=== PATIENT | female | born 1990 | race Caucasian/White ===

== ENCOUNTER 2016-07-30 00:25 | Emergency (ER) | payer OTHER ==
[~2016-07-30] VITALS: Ht 154.9 cm; Wt 77.1 kg
[~2016-07-30 00:25] MED LIST: DOCUSATE SODIU100 MG PO; IBUPROFEN800 MG PO; MILK OF MAGNESI30 ML PO; PERCOCET 325 MG1 TA2 PO; PERCOCET MONOGRA5 MG PO; PROAIR HFA0.09 MG/Ac INH
[2016-07-30 00:39] VITALS: BP 129/90
[2016-07-30 01:13] LABS: ABSOLUTE BASOPHIL COUNT 0 /CUMM (0.0-0.2); ABSOLUTE EOSINOPHIL COUNT 0.1 /CUMM (0.0-0.7); ABSOLUTE GRANULOCYTE CT 5.3 /CUMM (1.4-6.5); ABSOLUTE LYMPH COUNT 2.3 /CUMM (1.2-3.4); ABSOLUTE MONOCYTE COUNT 0.9 /CUMM (0.10-0.60); BASOPHIL % 0.4 % (0.0-2.0); EOSINOPHIL % 1.2 % (0-5); HEMATOCRIT 38.7 % (37-47); MEAN CORPUSCULAR HGB 28.7 PG (27.0-31.0); MEAN CORPUSCULAR HGB CONC 33.6 G/DL (33.0-37.0); MEAN CORPUSCULAR VOLUME 85.4 FL (81.0-99.0); MEAN PLATELET VOLUME 8.4 FL (7.4-10.4); PLATELET COUNT 275 /CUMM (130-400); RBC DISTRIBUTION WIDTH 13.5 % (11.5-14.5); RED BLOOD CELL CT 4.53 /CUMM (4.20-5.40); WHITE BLOOD CELL COUNT 8.6 /CUMM (4.8-10.8)
--- NOTE | 2016-07-30 02:49 | ED GI/GU/ABDOMINAL COMPLAINT ---
History of Present Illness General Chief Complaint: Female Urogenital Problems Stated Complaint: " 7WKS , NOT SURE IF HAVING A MISCARRIAGE" Source: patient Exam Limitations: no limitations Vital Signs & Intake/Output Vital Signs & Intake/Output Vital Signs Date Time Temp Pulse Resp B/P B/P Pulse O2 O2 Flow FiO2 Mean Ox Delivery Rate 07/30 0039 97.6 86 18 129/90 96 Room Air Allergies Coded Allergies: MDX - Penicillin (PENICILLIN) (Intermediate, HIVES 05/25/14) Reconcile Medications Albuterol Sulfate (Proair Hfa) 0.09 MG/Actuation ARCELIA 2 PUF INH PRN PRN SHORTNESS OF BREATH (Reported) Docusate Sodium 100 MG SGL 100 MG PO BID constpation Ibuprofen 800 MG TABLET 1 TAB PO Q6P PRN PAIN SCALE 1-4 Magnesium Hydroxide (Milk Of Magnesia 30ML) 400 MG/5 ML ORAL.SUSP 30 ML PO ONE constipation OXYCODONE HCL/ACETAMINOPHEN (Percocet 5-325 MG Tablet) 325 MG/5 MG TAB 1-2 TAB PO Q4-6 PRN PRN PAIN Oxycodone/Acetaminophen (Percocet 5-325 MG Tablet) 5 MG-325 MG TABLET 1 TAB PO Q4P PRN PAIN SCALE 4-7 Triage Note: PT FROM HOME C/O VAGINAL BLEEDING. PT STATES SHE IS 7 WEEKS AND TONIGHT AT WORK NOTICED DARK DISCHARGE WHICH OBGYN STATED WAS NORMAL, BUT TONIGHT HAD BRIGHT RED BLOOD IN DISCHARGE AND PT WAS WORRIED SO CAME TO ED. PT DENIES N/V OR ABD PAIN "I JUST FEEL HUNGRY". PT IN NO DISTRESS IN TRIAGE. AWAITING TBS BY PROVIDER. Triage Nurses Notes Reviewed? yes ? Y Is pt currently ? No HPI: Patient presents for evaluation of dark vaginal bleeding that occurred after using the bathroom this evening. Patient is 7 weeks and the IUP confirmed by an ultrasound at her [employer] [employer]NA[facility] doctor's office. Patient states however that when the blood became red she felt "it was coming from somewhere" and came to the emergency department for evaluation. Patient states she's had a mild to moderate amount of bleeding. Nothing seems to make the bleeding improve. She states that she is having some very mild back cramps but otherwise no associated pain or discomfort. Past History Travel History Traveled to [place] past 21 day No Medical History Any Pertinent Medical History? see below for history Neurological: NONE EENT: NONE Cardiovascular: NONE Respiratory: NONE Gastrointestinal: NONE Hepatic: NONE Renal: NONE Musculoskeletal: NONE Psychiatric: NONE Endocrine: NONE Blood Disorders: NONE Cancer(s): NONE FUNDING COORDINATOR/Reproductive: R/L OVARIAN CYST History of MRSA: No History of VRE: No History of CDIFF: No Tetanus Vaccine: 04/17/12 Surgical History Surgical History: non-contributory Psychosocial History Who do you live with Family What is your primary language [place] Tobacco Use: Never used Family History Hx Contributory? No Review of Systems Review of Systems Constitutional: Reports: no symptoms. EENTM: Reports: no symptoms. Respiratory: Reports: no symptoms. Cardiovascular: Reports: no symptoms. GI: Reports: no symptoms. Genitourinary: Reports: see HPI. Musculoskeletal: Reports: no symptoms. Skin: Reports: no symptoms. Neurological/Psychological: Reports: no symptoms. Hematologic/Endocrine: Reports: no symptoms. Immunologic/Allergic: Reports: no symptoms. All Other Systems: Reviewed and Negative Physical Exam Physical Exam Gastrointestinal: SEE BELOW Comments: Gen.: Well-nourished, well-developed, no acute respiratory distress. Head: Normocephalic, atraumatic. Eyes: Normal inspection bilaterally Ears: Normal inspection bilaterally Nose: Normal inspection Throat/mouth : Moist mucosa Neck: Supple, full range of motion, no goiter Lungs: Quiet respirations Back: Normal range of motion Abdomen: Soft, nontender, nondistended, normal bowel sounds Extremities: Normal range of motion grossly, equal radial pulses, no cyanosis clubbing or edema Neurologic: Cranial nerves grossly intact, speech is clear Skin: warm and dry Psychiatric: Calm, cooperative, no apparent delusions or hallucinations : Cervical os is closed and there is no blood in the vaginal vault on speculum exam. Core Measures ACS in differential dx? No Severe Sepsis Present: No Septic Shock Present: No Progress Differential Diagnosis: VAGINAL BLEEDING DURING Plan of Care: Orders Procedure Date/time Status TYPE & SCREEN (NOT X-MATCH) 07/31 55 Complete URINALYSIS 07/30 54 Complete HUMAN BETA HCG TITRE 07/30 54 Complete CBC WITHOUT DIFFERENTIAL 07/30 54 Complete Laboratory Tests 07/30/16 0106: Beta HCG, Quant 1457.2, CBC w Diff NO MAN DIFF REQ, RBC 4.53, MCV 85.4, MCH 28.7 , RDW 13.5, MPV 8.4, Gran % 62.0, Lymphocytes % 26.4, Monocytes % 10.0 H, Eosinophils % 1.2, Basophils % 0.4, Absolute Granulocytes 5.3, Absolute Lymphocytes 2.3, Absolute Monocytes 0.9 H, Absolute Eosinophils 0.1, Absolute Basophils 0, PUBS MCHC 33.6 07/30/16 0058: Urine Color STRAW, Urine Clarity HAZY H, Urine pH 6.5, Ur Specific [place] <= 1.005, Urine Protein NEG, Urine Ketones NEG, Urine Nitrite NEG, Urine Bilirubin NEG, Urine Urobilinogen 0.2, Ur Leukocyte Esterase SMALL H, Ur Microscopic SEDIMENT EXAMINED, Urine RBC RARE, Urine WBC 1-3 H, Ur Epithelial Cells MANY H , Urine Bacteria FEW H, Urine Mucus RARE, Urine Hemoglobin SMALL H, Urine Glucose NEG Initial ED EKG: none Comments: The cervical os is closed so I doubt miscarriage at this time. Maritza states that she has had an ultrasound to confirm an intrauterine so I doubt ectopic. I feel she is stable for follow-up with her [employer] doctor. Departure Departure Disposition: HOME OR SELF CARE Condition: Stable Clinical Impression Primary Impression: Vaginal bleeding during , antepartum Qualifiers: Trimester: first trimester Qualified Code: O46.91 - Antepartum hemorrhage, unspecified, first trimester Referrals: PATIENT HAS NO PRIMARY CARE DR (PCP/Family) Additional Instructions: Follow-up with your [employer] doctor tomorrow. Return if any concerns or sudden worsening. Departure Forms: Customer Survey General Discharge Information
== END 2016-07-30 04:00 ==
LOC: ERH 00:25
PROVIDERS: Emergency Medicine
DX: O46.91 Antepartum hemorrhage, unspecified, first trimester (principal); Z3A.01 Less than 8 weeks gestation of pregnancy
CPT/HCPCS: 81001